=== PATIENT | female | born 1990 | race Two or more races ===

== ENCOUNTER 2019-06-03 21:27 | Emergency (ER) | payer SELFPAY, OTHER ==
[2019-06-04] MEDS: LORAZEPAM 1 MG TAB PO (00:46)
[2019-06-04] MEDS: IBUPROFEN 600 MG TAB PO (00:46)
== END 2019-06-04 00:52 | disposition home or self-care (01) ==
LOC: FTE 06-04 00:52
DX: M62.830 Muscle spasm of back (principal); F41.9 Anxiety disorder, unspecified; F17.210 Nicotine dependence, cigarettes, uncomplicated
CPT/HCPCS: 81003; 81025; 99283